=== PATIENT | female | born 1960 | race Caucasian/White ===

== ENCOUNTER 2024-01-24 17:44 | Emergency (ER) | payer BC ==
[~2024-01-24] VITALS: Ht 162.6 cm; Wt 72.1 kg
[2024-01-24] MEDS ORDERED: Ibuprofen 400 MG Tab PO ONE (19:45)
== END 2024-01-24 20:00 | disposition home or self-care (01) ==
LOC: ER 17:44
DX: S52.502A Unspecified fracture of the lower end of left radius, initial encounter for closed fracture (principal); W18.30XA Fall on same level, unspecified, initial encounter; Z88.0 Allergy status to penicillin; Z88.2 Allergy status to sulfonamides
CPT/HCPCS: 29105; 73110; 99283-25; A9270